=== PATIENT | male | born 1995 | race African-American/Black ===

== ENCOUNTER 2016-12-17 16:54 | Emergency (ER) | payer OTHER ==
[~2016-12-17 16:54] MED LIST: AMITRYPTYLINE PO; AUGMENTIN PO; BENTYL20 MG PO; KEFLEX PO; NO MEDICATIONS; PRILOSEC20 MG PO
== END 2016-12-17 17:27 | disposition home or self-care (01) ==
LOC: SED 16:54
DX: T81.89XA Other complications of procedures, not elsewhere classified, initial encounter (principal); G43.909 Migraine, unspecified, not intractable, without status migrainosus
CPT/HCPCS: 99282